=== PATIENT | female | born 1950 | race Two or more races ===

== ENCOUNTER 2018-10-13 12:37 | Inpatient (IN) | payer MEDICAID ==
[~2018-10-13] VITALS: Ht 152.4 cm; Wt 73.9 kg
--- NOTE | 2018-10-13 12:37 | NUR ---
PT WAS BIB FAMILY C/O CHEST PAIN SINCE YDAY, PT AMBULATORY, AAOX4, RESPIRATIONS EVEN AND UNLABORED, NAD NOTED, PT ON MONITOR, VSS, AWAITING MD GOSS
[2018-10-13 13:01] LABS: BASOPHILS # (AUTO) 0.1 /CMM (0.0-0.2); BASOPHILS % (AUTO) 1.1 % (0.0-2.0); EOSINOPHILS % (AUTO) 2.9 % (0.0-6.0); HEMATOCRIT 24 % (33-45); HEMOGLOBIN 8.1 g/dL (11.5-14.8); LYMPHOCYTES # (AUTO) 2.3 /CMM (0.8-4.8); LYMPHOCYTES % (AUTO) 34.4 % (20.0-44.0); MEAN CORPUSCULAR HGB CONC 33 g/dl (31.0-36.0); MEAN CORPUSCULAR VOLUME 84 fL (82-100); MONOCYTES # (AUTO) 0.5 /CMM (0.1-1.30); MONOCYTES % (AUTO) 7.7 % (2.0-12.0); NEUTROPHILS # (AUTO) 3.5 /CMM (1.8-8.9); NEUTROPHILS % (AUTO) 53.9 % (43.0-81.0); PLATELET COUNT (AUTO) 323 /CMM (150-450); RED BLOOD CELL COUNT(AUTO) 2.89 MIL/uL (4.0-5.2); WHITE BLOOD COUNT (AUTO) 6.6 K/uL (4.3-11.0)
[2018-10-13 13:21] LABS: ALANINE AMINOTRANSFERASE 25 U/L (12-78); ALBUMIN 3.4 g/dL (3.4-5.0); ALKALINE PHOSPHATASE 75 U/L (46-116); ASPARTATE AMINOTRANSFERASE 21 U/L (15-37); BILIRUBIN,DIRECT 0.1 mg/dL (0.0-0.2); BILIRUBIN,TOTAL 0.3 mg/dL (0.2-1.0); CALCIUM, SERUM 8.4 mg/dL (8.5-10.1); CARBON DIOXIDE 25 mmol/L (21-32); CHLORIDE 105 mmol/L (98-107); GLUCOSE 158 mg/dL (74-106); POTASSIUM 4.5 mmol/L (3.5-5.1); SODIUM SERUM 139 mmol/L (136-145); TOTAL PROTEIN, SERUM 7.7 g/dL (6.4-8.2); UREA NITROGEN, BLOOD 20 mg/dL (7-18)
[2018-10-13] MEDS ORDERED: ASPIRIN 81 MG TAB.CHEW PO ONE (13:30)
[2018-10-13] MEDS ORDERED: AZITHROMYCIN 500 MG in IV D5W 250 ML IV ONE (13:30)
[2018-10-13] MEDS ORDERED: CEFTRIAXONE 1GM BAG (ER ONLY) 50 ML IV ONE ×2 (13:30→13:57)
[2018-10-13] MEDS ORDERED: METF-440 PO (13:34)
[2018-10-13] MEDS ORDERED: LISI40TA4 PO (13:34)
[2018-10-13] MEDS ORDERED: PIOG30TA10 PO (13:34)
[2018-10-13] MEDS ORDERED: AMLO10TA6 PO (13:34)
[2018-10-13] MEDS ORDERED: ASPI-1152 PO (13:34)
[2018-10-13] MEDS ORDERED: ATOR40TA PO (13:34)
[2018-10-13] MEDS ORDERED: GLIP5TAB13 PO (13:34)
[2018-10-13 13:49] LABS: OCCULT BLOOD STOOL NEGATIVE (NEGATIVE)
--- NOTE | 2018-10-13 13:52 | NUR ---
REPORT GIVEN TO IVY MANN FOR ADMISSION
[2018-10-13] MEDS ORDERED: ASPIRIN 81 MG TAB.CHEW ONE (13:58)
--- NOTE | 2018-10-13 14:22 | NUR ---
TRANSPORTED TO CT IN STABLE CONDITION
--- NOTE | 2018-10-13 14:37 | NUR ---
PT TRANSFERRED TO ROOM 323-2 VIA ACLS PROTOCOL
[2018-10-13 15:00] VITALS: BP 148/86
[2018-10-13] MEDS ORDERED: MAGNESIUM HYDROXIDE 30 ML UDC PO PRN (15:00)
[2018-10-13] MEDS ORDERED: MAG HYDROX/AL HYDROX/SIMETH 30 ML UDC PO PRN (15:00)
[2018-10-13] MEDS ORDERED: ONDANSETRON HCL/PF 4 MG/2 ML VIAL IVP PRN (15:00)
[2018-10-13] MEDS ORDERED: ZOLPIDEM TARTRATE 5 MG TABLET PO PRN (15:00)
[2018-10-13] MEDS ORDERED: HYDROCODONE/APAP 5/325MG 1 EACH TABLET PO PRN (15:00)
[2018-10-13] MEDS ORDERED: ACETAMINOPHEN 325 MG TABLET PO PRN (15:00)
[2018-10-13] MEDS ORDERED: Z GUARD REMEDY 2 OZ OINT TP PRN (15:00)
--- NOTE | 2018-10-13 15:00 | NUR ---
LOADER SEMICONDUCTOR DIES ADMITTING NOTES ADMITTED PT FROM ER VIA [facility].PT ALERT AND ORIENTED X4.VERBALLY RESPONSIVE.SKIN INTACT.PT AMBULATES AD FLAKITA.ON TELE WITH SR HR 82.DENIES CHEST PAIN OR ANY DISTRESS AT THIS TIME.O2 SAT 96%RA .DUTCH SPEAKING ONLY.DAUGHTER AT BEDSIDE.WITH ONGOING ZITHROMAX IV TO COMPLETE-INFUSING WELL.ORIENTED TO HER ROOM.CALL LIGHT PLACED WITHIN REACH.
[2018-10-13 16:00] VITALS: BP 129/69
[2018-10-13] MEDS ORDERED: DEXTROSE 50%-WATER 50 ML DISP.SYRIN IV PRN (16:00)
[2018-10-13] MEDS: BLOOD SUGAR DIAGNOSTIC 1 EACH STRIP IN SCH ×2 (16:53→23:23)
[2018-10-13] MEDS: PANTOPRAZOLE 40 MG TABLET.DR PO SCH (17:02)
[2018-10-13] MEDS: INSULIN REGULAR, HUMAN 100 UNIT/ML 3 ML VIAL SQ PRN (17:04)
[2018-10-13 17:53] LABS: IRON, SERUM 32 ug/dl (50-175); TOTAL IRON BINDING CAPACITY 343 ug/dl (250-450)
--- NOTE | 2018-10-13 18:12 | NUR ---
PT RESTING IN BED DENYING ANY CHEST PAIN OR DISTRESS.FAMILY MEMBERS AT BEDSIDE.CALL LIGHT PLACED WITHIN REACH.
[2018-10-13] MEDS ORDERED: ATORVASTATIN 40 MG TABLET PO SCH (18:30)
--- NOTE | 2018-10-13 19:15 | NUR ---
RN NOTES RECEIVED PATIENT AWAKE, HOB ELEVATED, ON ROOM AIR AND TOLERATED WELL. TELE MONITOR READS SINUS RHYTHM WITH HEART RATE AT 81. PATIENT IS ALERT AND ORIENTED X3, DENIES PAIN, NAUSEA AND VOMITING AT THIS TIME. IV ACCESS ON RIGHT HAND INTACT. PLAN OF CARE DISCUSSED WITH THE PATIENT AND FAMILY AT BEDSIDE AND VERBALIZED UNDERSTANDING. FALL PRECAUTION OBSERVED. KEPT COMFORTABLE AND ATTENDED. WILL CONTINUE TO MONITOR PATIENT.
[2018-10-13 20:00] VITALS: BP 118/60
[2018-10-13] MEDS: ASPIRIN EC 81 MG TABLET.DR PO SCH (20:48)
[2018-10-13] MEDS: glipiZIDE 5 MG TABLET PO SCH (20:48)
[2018-10-13] MEDS: METFORMIN 500 MG TABLET PO SCH (20:48)
[2018-10-13] MEDS: AMLODIPINE BESYLATE 10 MG TABLET PO SCH (20:49)
[2018-10-13] MEDS: LISINOPRIL (20MG) 20 MG TABLET PO SCH (20:50)
[2018-10-13] MEDS ORDERED: ENOXAPARIN SODIUM 30 MG/0.3 ML DISP.SYRIN SQ SCH (21:00)
[2018-10-13 22:00] VITALS: BP 126/74
[2018-10-14] VITALS: BP 124/59
[2018-10-14 04:00] VITALS: BP 113/59
[2018-10-14] MEDS: BLOOD SUGAR DIAGNOSTIC 1 EACH STRIP IN SCH ×4 (05:56→21:36)
[2018-10-14 06:34] LABS: BASOPHILS % (AUTO) 0.7 % (0.0-2.0); EOSINOPHILS % (AUTO) 1.7 % (0.0-6.0); HEMATOCRIT 23 % (33-45); HEMOGLOBIN 7.8 g/dL (11.5-14.8); LYMPHOCYTES # (AUTO) 2.2 /CMM (0.8-4.8); LYMPHOCYTES % (AUTO) 31.1 % (20.0-44.0); MEAN CORPUSCULAR HGB CONC 33 g/dl (31.0-36.0); MEAN CORPUSCULAR VOLUME 84 fL (82-100); MONOCYTES # (AUTO) 0.5 /CMM (0.1-1.30); MONOCYTES % (AUTO) 6.4 % (2.0-12.0); NEUTROPHILS # (AUTO) 4.2 /CMM (1.8-8.9); NEUTROPHILS % (AUTO) 60.1 % (43.0-81.0); PLATELET COUNT (AUTO) 284 /CMM (150-450); RED BLOOD CELL COUNT(AUTO) 2.77 MIL/uL (4.0-5.2)
--- NOTE | 2018-10-14 06:37 | NUR ---
RN NOTES PATIENT STABLE OVERNIGHT, VITAL SIGNS STABLE, AFEBRILE. NO SIGNS OF DISTRESS AND DISCOMFORT NOTED. DENIES PAIN, NAUSEA AND VOMITING. ON ROOM AIR AND TOLERATED WELL, DENIES SOB. TELEMONITOR READS SINUS RHYTHM WITH HEART RATE AT 81. KEPT PATIENT ON NPO PRIOR TO BE SEEN BY SPECIAL EFFECTS SPECIALIST. FALL PRECAUTION OBSERVED. ALL NEEDS ATTENDED. WILL CONTINUE TO MONITOR PT.
[2018-10-14 06:51] LABS: CALCIUM, SERUM 8.2 mg/dL (8.5-10.1); CREATININE 0.9 mg/dL (0.6-1.3); POTASSIUM 4.7 mmol/L (3.5-5.1)
--- NOTE | 2018-10-14 07:25 | NUR ---
MS/RN OPENING NOTE THE PATIENT IS RECEIVED IN BED. ALERT AND ORIENTED X3 AND SPEAKS [place]UR[place]. ABLE TO MAKE NEEDS KNOWN. DENIES PAIN. RESPIRATION REGULAR AND UNLABORED BUT WITH EPISODES OF SOB AND SHE HAS DIFFICULTY TAKING DEEP BREATH. OXYGEN SATURATION IN ROOM AIR AT 91%. PATIENT IS PLACED ON 2L/MIN VIA NASAL CANNULA AND SATURATION LEVEL INCREASED TO 95%. WILL CONTINUE TO MONITOR. RIGHT HAND G 20 PATENT AND SALINE LOCKED. BED LOW AND LOCKED. SIDE RAILS UP X3. CALL LIGHT WITHIN REACH. WILL CONTINUE TO MONITOR.
[2018-10-14 08:00] VITALS: BP 123/60
--- NOTE | 2018-10-14 08:12 | NUR ---
MS/RN NOTE THE PATIENT VERBALIZED RELIEF FROM SOB DUE TO HAVING OXYGEN (2L/MIN VIA NASAL CANNULA). WILL CONTINUE TO MONITOR THE PATIENT.
[2018-10-14] MEDS ORDERED: ENOXAPARIN SODIUM 40 MG/0.4 ML DISP.SYRIN SQ SCH ×2 (09:00→21:00)
[2018-10-14 09:08] LABS: ALBUMIN 3.1 g/dL (3.4-5.0); BILIRUBIN,DIRECT 0.1 mg/dL (0.0-0.2); BILIRUBIN,TOTAL 0.3 mg/dL (0.2-1.0); TOTAL PROTEIN, SERUM 7.3 g/dL (6.4-8.2)
--- NOTE | 2018-10-14 09:23 | NUR ---
MS/RN NOTE RECEIVED CARDIAC DIET ORDER STARTING 10/14/[address] SHAH. THE ORDER IS READ BACK, VERIFIED. NOTED AND CARRIED OUT.
[2018-10-14] MEDS: ASPIRIN EC 81 MG TABLET.DR PO SCH (09:37)
[2018-10-14] MEDS: METFORMIN 500 MG TABLET PO SCH ×2 (09:37→16:16)
[2018-10-14] MEDS: FERROUS SULFATE (325 MG) 325 MG/TAB TABLET PO SCH ×2 (09:37→16:16)
[2018-10-14] MEDS: glipiZIDE 5 MG TABLET PO SCH ×2 (09:37→16:16)
[2018-10-14] MEDS: PIOGLITAZONE HCL 15 MG TABLET PO SCH (09:37)
[2018-10-14] MEDS: AMLODIPINE BESYLATE 10 MG TABLET PO SCH (09:38)
[2018-10-14] MEDS: LISINOPRIL (20MG) 20 MG TABLET PO SCH (09:38)
[2018-10-14] MEDS: PANTOPRAZOLE 40 MG TABLET.DR PO SCH (09:42)
[2018-10-14] MEDS: FUROSEMIDE 40 MG/4 ML VIAL IV SCH ×3 (09:43→16:16)
[2018-10-14 09:53] LABS: THYROID STIMULATING HORMONE 2.222 uIU/mL (0.358-3.74)
[2018-10-14] MEDS: INSULIN REGULAR, HUMAN 100 UNIT/ML 3 ML VIAL SQ PRN (12:11)
--- NOTE | 2018-10-14 12:35 | NUR ---
MS/RN NOTE BLOOD SUGAR 157 AND 2 UNITS REGULAR INSULIN GIVEN PER ORDER. NO ADVERSE REACTIONS NOTED.
[2018-10-14] MEDS ORDERED: AZITHROMYCIN 500 MG in IV D5W 250 ML IV SCH (13:00)
[2018-10-14] MEDS ORDERED: CEFTRIAXONE 1 G in IV D5W 50 ML IV SCH (14:00)
[2018-10-14] MEDS ORDERED: SOD FERRIC GLUC 125 MG in IV NS 0.9% 100 ML IV SCH (14:00)
--- NOTE | 2018-10-14 14:45 | NUR ---
MS/RN NOTE ROCEPHIN 1GM ADMINISTERED AT 1445 DUE TO PHARMACY LATE DELIVERY.
[2018-10-14 16:00] VITALS: BP 130/67
[2018-10-14] MEDS: LACTOBACILLUS RHAMNOSUS GG 1 EACH CAP.SPRINK PO SCH (16:16)
--- NOTE | 2018-10-14 17:50 | NUR ---
MS/RN NOTE BLOOD SUGAR IS 58. THE PATIENT IS HAVING DINNER. WILL RECHECK THE BLOOD SUGAR.
--- NOTE | 2018-10-14 18:15 | NUR ---
MS/RN NOTE BLOOD SUGAR RECHECKED AND IT IS 78. THE PATIENT IN NO APPARENT DISTRESS. ALERT AND ORIENTED X3. IN NO DISTRESS.
--- NOTE | 2018-10-14 18:43 | NUR ---
Met with patient and spouse, both speaks [place] only. Patient lives on the 3rd floor apartment with elevator access. She is ambulatory and independent with adl's. Her pcp is from [facility]. Family will ride when discharge. Addendum: 10/14/18 at 1844 by BERTRAM VILLELA RN Amended: Links added.
--- NOTE | 2018-10-14 18:46 | NUR ---
MS/RN CLOSING NOTE THE PATIENT ALERT AND ORIENTED X3. RECEIVING OXYGEN AT 2L/MIN VIA NASAL CANNULA AND SATURATION IS AT 95%. DENIES SOB AT THIS TIME. DENIES PAIN. RIGHT HAND G 20 PATENT AND SALINE LOCKED. BED LOW AND LOCKED. SIDE RAILS UP X3. CALL LIGHT WITHIN REACH. WILL ENDORSE TO SENIOR PRODUCT DEVELOPMENT ENGINEER.
[2018-10-14 20:00] VITALS: BP 122/55
--- NOTE | 2018-10-14 21:23 | NUR ---
blood sugar 57mg/dl. hbg 7.8/hct 23. Dr Riley group paged to inform about the patient,s blood sugar llevel and to clarify if lovenox can be given with the hbg level from 8.1. awaiting reponse from the physician furnace combustion analyst, orange juice with 4 packets of recular sugar given as patient is alert, will bne given diet.
--- NOTE | 2018-10-14 21:33 | NUR ---
with orders to hold the lovenox and to recheck the blood sugar after the orange juice with 4 packets of regular sugar given. patient is alert and responsive
--- NOTE | 2018-10-14 21:37 | NUR ---
with orders to hold the lovenox tonight and will needs to reclarify the order for loveox due tro low hbg
--- NOTE | 2018-10-14 22:09 | NUR ---
BLOOD SUGAR 81MG/DLPATIENT IS ALERT AND RESPONSIVE
--- NOTE | 2018-10-15 05:26 | NUR ---
BLOOD SUGAR 88MG/DL. RECHECKED THE PATIENT HAS HISTORY OF HYPOGLYCEMIA
[2018-10-15] MEDS: BLOOD SUGAR DIAGNOSTIC 1 EACH STRIP IN SCH ×2 (07:35→11:47)
--- NOTE | 2018-10-15 07:37 | NUR ---
RN OPENING NOTES PT RECIEVED IN BED AT LOWEST AND LOCKED POSITION WITH SIDE RAILS UP X2, A/O X3 DUTCH SPEAKING, BREATHING EVEN AND UNLABORED ON RA, NO S/S OF PAIN OR DISTRESS NOTED AT THIS TIME, NOTED TO BE NPO BUT ACCORDING TO NUTRITIONAL SERVICES COOK RN SHE IS ON A CARDIAC DIET, IV IS PATENT AND INTACT, SAFETY PRECAUTIONS IN PLACE, CALL LIGHT WITHIN REACH, WILL MONITOR ACCORDINGLY
[2018-10-15 07:48] LABS: BASOPHILS % (AUTO) 0.6 % (0.0-2.0); EOSINOPHILS % (AUTO) 1.7 % (0.0-6.0); HEMATOCRIT 23 % (33-45); HEMOGLOBIN 7.9 g/dL (11.5-14.8); LYMPHOCYTES # (AUTO) 2.5 /CMM (0.8-4.8); LYMPHOCYTES % (AUTO) 34.6 % (20.0-44.0); MEAN CORPUSCULAR HGB CONC 34 g/dl (31.0-36.0); MEAN CORPUSCULAR VOLUME 84 fL (82-100); MONOCYTES # (AUTO) 0.6 /CMM (0.1-1.30); NEUTROPHILS % (AUTO) 55.1 % (43.0-81.0); PLATELET COUNT (AUTO) 288 /CMM (150-450); RED BLOOD CELL COUNT(AUTO) 2.78 MIL/uL (4.0-5.2); WHITE BLOOD COUNT (AUTO) 7.2 K/uL (4.3-11.0)
[2018-10-15 08:00] VITALS: BP 137/76
[2018-10-15] MEDS: LACTOBACILLUS RHAMNOSUS GG 1 EACH CAP.SPRINK PO SCH (08:06)
[2018-10-15] MEDS: PANTOPRAZOLE 40 MG TABLET.DR PO SCH (08:07)
[2018-10-15] MEDS: FERROUS SULFATE (325 MG) 325 MG/TAB TABLET PO SCH (08:07)
[2018-10-15] MEDS: AMLODIPINE BESYLATE 10 MG TABLET PO SCH (08:08)
[2018-10-15] MEDS: ASPIRIN EC 81 MG TABLET.DR PO SCH (08:08)
[2018-10-15 08:09] VITALS: BP 137/76
[2018-10-15] MEDS: LISINOPRIL (20MG) 20 MG TABLET PO SCH (08:09)
[2018-10-15 08:11] LABS: ALANINE AMINOTRANSFERASE 16 U/L (12-78); ALKALINE PHOSPHATASE 62 U/L (46-116); ASPARTATE AMINOTRANSFERASE 17 U/L (15-37); BILIRUBIN,TOTAL 0.4 mg/dL (0.2-1.0); CALCIUM, SERUM 8.5 mg/dL (8.5-10.1); CARBON DIOXIDE 29 mmol/L (21-32); CHLORIDE 104 mmol/L (98-107); CREATININE 1.1 mg/dL (0.6-1.3); GLUCOSE 89 mg/dL (74-106); MAGNESIUM 1.8 mg/dL (1.8-2.4); PHOSPHORUS 4.5 mg/dL (2.5-4.9); POTASSIUM 4.1 mmol/L (3.5-5.1); SODIUM SERUM 142 mmol/L (136-145); TOTAL PROTEIN, SERUM 7.3 g/dL (6.4-8.2); UREA NITROGEN, BLOOD 20 mg/dL (7-18)
[2018-10-15] MEDS: METFORMIN 500 MG TABLET PO SCH (08:13)
[2018-10-15] MEDS: PIOGLITAZONE HCL 15 MG TABLET PO SCH (08:13)
[2018-10-15] MEDS: glipiZIDE 5 MG TABLET PO SCH (08:14)
[2018-10-15] MEDS ORDERED: FERR325T28 PO (11:26)
[2018-10-15] MEDS ORDERED: AMOX-427 PO (11:26)
--- NOTE | 2018-10-15 12:47 | NUR ---
DISCHARGE NOTE PT DISCHARGED IN MEDICALLY STABLE CONDITION AT THIS TIME HOME WITH DAUGHTER СЕРГЕЙ IN THEIR PRIVATE CAR, ALL DISCHARGE PAPERWORK WAS DISCUSSED WITH THE PATIENT AND DAUGHTER, DISCHARGE PAPERWORK AND BELONGING LIST WERE SIGNED, IV AND ID BAND WERE REMOVED, PT SKIN WAS DRY AND INTACT WITH NO WOUNDS NOTED OR DOCUMENTED IN THE CHART, PT WAS WALKED DOWN BY ME TO THE ENTRANCE WHERE SHE LEFT WITH HER DAUGHTER, SHE LEFT A/O X3, NO PAIN OR S/S OF DISTRESS NOTED, BREATHING EVEN AND UNLABORED, SKIN DRY AND INTACT WITH NO WOUNDS NOTED, AMBULATORY. ALL NEEDS WERE ATTENDED TO DURING HER STAY.
== END 2018-10-15 12:45 | disposition home or self-care (01) | DRG 139 ==
LOC: ER 12:39 → TELE 13:53 → MED 10-14 09:32
PROVIDERS: ADMIT Student in an Organized Health Care Education/Training Program; ATTEND Student in an Organized Health Care Education/Training Program
DX: J15.9 Unspecified bacterial pneumonia (principal); I27.20 Pulmonary hypertension, unspecified; J90 Pleural effusion, not elsewhere classified; I50.32 Chronic diastolic (congestive) heart failure; E83.51 Hypocalcemia; I11.0 Hypertensive heart disease with heart failure; R18.8 Other ascites; Z79.82 Long term (current) use of aspirin; J98.11 Atelectasis; Z79.84 Long term (current) use of oral hypoglycemic drugs; D50.9 Iron deficiency anemia, unspecified; E11.9 Type 2 diabetes mellitus without complications; I34.0 Nonrheumatic mitral (valve) insufficiency
CPT/HCPCS: 36415; 71045-TC; 71250-TC; 76700-TC; 80048-TC; 80053-TC; 80061-TC; 80076-TC; 82272-TC; 82728-TC; 82962-TC; 83540-TC; 83605-TC; 83735-TC; 84100-TC; 84439-TC; 84443-TC; 84484-TC; 85025-TC; 85652-TC; 85730-TC; 87040-TC; 87081-TC; 93307-TC; A4606; G0378; J0456; J0696; J1650; J1815; J1940; J2916; J7030; J7050; J7060; Z7610

== ENCOUNTER 2022-05-10 14:55 | Emergency (ER) | payer MEDICAID, OTHER ==
[~2022-05-10] VITALS: Ht 162.6 cm; Wt 68.0 kg
[~2022-05-10 14:55] MED LIST: AMLO-213 PO; AMOX-427 PO; ASPI-1420 PO; ATOR40TA PO; FERR325T28 PO; GLIP5TAB13 PO; LISI40TA13 PO; METF-440 PO; PIOG30TA10 PO
[2022-05-10] MEDS ORDERED: ONDANSETRON 4 MG TAB.RAPDIS PO ONE (16:00)
[2022-05-10] MEDS ORDERED: MECLIZINE HCL 12.5 MG TABLET PO ONE (16:00)
[2022-05-10] MEDS ORDERED: IV NS 0.9% 1,000 ML BAG IV ONE ×2 (16:00→18:30)
[2022-05-10 16:12] LABS: BASOPHILS % (AUTO) 0.6 % (0.0-2.0); EOSINOPHILS % (AUTO) 2.2 % (0.0-6.0); HEMATOCRIT 30 % (33-45); HEMOGLOBIN 10.1 g/dL (11.5-14.8); LYMPHOCYTES % (AUTO) 25.1 % (20.0-44.0); MEAN CORPUSCULAR HGB CONC 33 g/dl (31.0-36.0); MEAN CORPUSCULAR VOLUME 80 fL (82-100); MONOCYTES # (AUTO) 0.5 K/uL (0.1-1.30); MONOCYTES % (AUTO) 6.4 % (2.0-12.0); NEUTROPHILS # (AUTO) 5.3 K/uL (1.8-8.9); NEUTROPHILS % (AUTO) 65.7 % (43.0-81.0); PLATELET COUNT (AUTO) 87 K/uL (150-450); RED BLOOD CELL COUNT(AUTO) 3.79 MIL/uL (4.0-5.2)
[2022-05-10] MEDS ORDERED: MECLIZINE HCL 25 MG TABLET ONE (16:16)
[2022-05-10] MEDS ORDERED: ONDANSETRON 4 MG TAB.RAPDIS ONE (16:16)
[2022-05-10 16:45] LABS: ALANINE AMINOTRANSFERASE 14 U/L (12-78); ALBUMIN 3.5 g/dL (3.4-5.0); ALKALINE PHOSPHATASE 109 U/L (46-116); ASPARTATE AMINOTRANSFERASE 16 U/L (15-37); BILIRUBIN,DIRECT 0.1 mg/dL (0.0-0.2); BILIRUBIN,TOTAL 0.2 mg/dL (0.2-1.0); CALCIUM, SERUM 8.7 mg/dL (8.5-10.1); CARBON DIOXIDE 25 mmol/L (21-32); CHLORIDE 100 mmol/L (98-107); CREATININE 2.8 mg/dL (0.6-1.3); GLUCOSE 280 mg/dL (74-106); POTASSIUM 5.6 mmol/L (3.5-5.1); SODIUM SERUM 132 mmol/L (136-145); TOTAL PROTEIN, SERUM 8.8 g/dL (6.4-8.2); UREA NITROGEN, BLOOD 41 mg/dL (7-18)
[2022-05-10 16:55] LABS: BAND % (MANUAL) 1 % (0.0-5.0); EOSINOPHILS % (MANUAL) 2 % (0-4); LYMPHOCYTES % (MANUAL) 20 % (16-48); MONOCYTES % (MANUAL) 6 % (0-11.0); NEUTROPHILS % (MANUAL) 71 (42-76)
[2022-05-10] MEDS ORDERED: SODIUM POLYSTYRENE SULFONATE 15 G/60 ML BOTTLE ONE (18:27)
[2022-05-10] MEDS ORDERED: SODIUM POLYSTYRENE SULFONATE 15 G/60 ML BOTTLE PO ONE (18:30)
[2022-05-10] MEDS ORDERED: SODI15OR6 PO (18:31)
[2022-05-10] MEDS ORDERED: MECL-159 PO (18:31)
--- NOTE | 2022-05-10 19:41 | NUR ---
RECEIVED REPORT FROM BALJIT MANN FOR SHEILA
--- NOTE | 2022-05-10 20:25 | NUR ---
IV removed. Catheter intact and site benign. Pressure and 4x4 applied to site. No bleeding noted.
[2022-05-10 20:46] VITALS: BP 131/74
--- NOTE | 2022-05-10 20:46 | NUR ---
Patient discharged to home in stable condition. Written and verbal after care instructions given. Patient verbalizes understanding of instruction.
== END 2022-05-10 20:58 | disposition home or self-care (01) ==
LOC: ER 15:03
DX: R42 Dizziness and giddiness (principal); E11.65 Type 2 diabetes mellitus with hyperglycemia; E11.22 Type 2 diabetes mellitus with diabetic chronic kidney disease; N18.9 Chronic kidney disease, unspecified; E87.5 Hyperkalemia; I10 Essential (primary) hypertension; Z79.899 Other long term (current) drug therapy
CPT/HCPCS: 99285; 96360; 70450; 96361; 93005; 85025; 80048; 80076; 36415; 85007; J8597; J7030 ×2; Q0162